=== PATIENT | female | born 2000 | race Caucasian/White ===

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

== ENCOUNTER 2022-04-15 17:34 | Outpatient (CLI) | payer MEDICAID, SELFPAY ==
--- NOTE | ~2022-04-15 | XR_ITS ---
EXAMINATION: XR thoracolumbar DATE: 04/15/2022 18:08 INDICATION: Scoliosis deformity of spine. Mid to low back pain. TECHNIQUE: 5 views of the thoracolumbar spine were obtained. COMPARISON: Lumbar spine radiographs 10/14/2013 FINDINGS: Bone alignment is normal. There is mild chronic anterior wedging of multiple thoracic verte bral bodies associated with Schmorl's nodes. There is mildly decreased disc height at multiple levels in lower thoracic spine. The facet joints are unremarkable. IMPRESSION: 1. Mild thoracic spondylosis. Reviewed, dictated and finalized at location A. ASSEMBLER
== END 2022-04-15 17:35 | disposition home or self-care (01) ==
LOC: CHSIMG 17:40
PROVIDERS: PCP Physician Assistant; Visit Provider Physician Assistant
DX: M41.9 Scoliosis, unspecified (principal); M43.04 Spondylolysis, thoracic region
CPT/HCPCS: 72080

== ENCOUNTER 2022-04-23 17:24 | Emergency (ER) | payer MEDICAID, SELFPAY ==
[2022-04-23 17:50] VITALS: BP 136/88; PULSE 98; RESP 20; TEMP 36.4; O2SAT 99
--- NOTE | 2022-04-23 18:11 | ED.GENADULT ---
HPI - General Adult General Chief complaint: Unspecified Stated complaint: white discharge coming our of rectum Time Seen by Provider: 04/23/22 17:29 Source: patient and family Mode of arrival: ambulatory Limitations: no limitations History of Present Illness HPI narrative: This is a 21-year-old female with no significant past medical history has been on a diet and has been drinking protein shakes and earlier today noticed some white and will discharge with no perirectal itching no no bleeding no fever chills no pain in the rectal area no nausea vomiting no abdominal pain. Onset (ago): hour(s) Severity: mild Related Data Home Medications Medication Instructions Recorded Confirmed topiramate 50 mg tablet 50 mg PO BID 04/23/22 04/23/22 Allergies Allergy/AdvReac Type Severity Reaction Status Date / Time sulfamethoxazole Allergy Hives Verified 04/23/22 18:07 [From Bactrim] trimethoprim [From Bactrim] Allergy Hives Verified 04/23/22 18:07 Review of Systems Review of Systems: All systems reviewed & are unremarkable except as noted in HPI and below PMFSH Past Medical History Medical History Patient denies medical problems Exam Const: General: cooperative, healthy appearing, comfortable, no acute distress and well developed HENMT: Head: normal to inspection Ears: hearing grossly normal bilaterally Face and sinus: normal facial exam Mouth: Yes Normal oral and palatal mucosa present Throat: posterior oropharynx normal Eyes: General: appearance normal, both eyes and all related structures Neck: Neck: normal visual inspection, full ROM, no lymphadenopathy and no meningeal signs Chest: Chest palpation & inspection: normal inspection of the chest Resp: Effort & Inspection: normal respiratory effort Auscultation: clear to auscultation bilaterally Cardio: Jugular venous distension: no JVD Palpation: normal PMI Rate: regular rate Rhythm: regular rhythm GI: Inspection: normal to inspection Other: rectal exam did not elicit any external hemorrhoids no redness no perirectal abscess currently no discharge no bleeding. : General: Yes bimanual renal exam normal bilaterally Urinary Catheter: Urinary Catheter: patent and draining Back/Spine/Pelvis: Back: no CVA tenderness Cervical Spine: normal cervical lordosis Skin: General skin exam: normal color and no rashes or lesions noted Neuro: General: oriented to person, oriented to place and oriented to time Psych: Appearance: grossly normal Mental Status: mental status grossly normal Course Course Emergency Course: Rectal exam did not elicit any white discharge no no evidence of pinworms. Vital Signs Vital signs: Vital Signs Temperature 36.4 C 04/23/22 17:50 Pulse Rate 98 04/23/22 17:50 Respiratory Rate 20 04/23/22 17:50 Blood Pressure 136/88 04/23/22 17:50 Pulse Oximetry 99 04/23/22 17:50 Oxygen Delivery Room Air 04/23/22 17:50 Temperature 36.4 C 04/23/22 17:50 Pulse Rate 98 04/23/22 17:50 Respiratory Rate 20 04/23/22 17:50 Blood Pressure 136/88 04/23/22 17:50 Pulse Oximetry 99 04/23/22 17:50 Oxygen Delivery Room Air 04/23/22 17:50 Medical Decision Making Vital Signs Vital Signs: Vital Signs Temperature 36.4 C 04/23/22 17:50 Pulse Rate 98 04/23/22 17:50 Respiratory Rate 04/23/22 17:50 Blood Pressure 136/88 04/23/22 17:50 Pulse Oximetry 99 04/23/22 17:50 Oxygen Delivery Room Air 04/23/22 17:50 Temperature 36.4 C 04/23/22 17:50 Pulse Rate 98 04/23/22 17:50 Respiratory Rate 04/23/22 17:50 Blood Pressure 136/88 04/23/22 17:50 Pulse Oximetry 99 04/23/22 17:50 Oxygen Delivery Room Air 04/23/22 17:50 Critical Care Time Critical Care Time Critical Care Time: No Discharge Plan Discharge Clinical Impression: Rectal discharge Patient Disposition: Home, Self-Care Conditi
[2022-04-23 18:22] VITALS: BP 125/82; PULSE 63; RESP 20; TEMP 36.4; O2SAT 99
--- NOTE | 2022-04-23 18:37 | PC.NURSE ---
On 04/23/22, the student, [farhan shultz ], provided care and completed [facility] documentation on this patient. I have reviewed the student's documentation and agree with the findings.
== END 2022-04-23 18:37 | disposition home or self-care (01) ==
LOC: CHSED 18:17
PROVIDERS: Emergency Provider Emergency Medicine; PCP Physician Assistant
DX: K62.89 Other specified diseases of anus and rectum (principal)
CPT/HCPCS: 99281

== ENCOUNTER 2024-01-18 18:12 | Outpatient (CLI) | payer OTHER, SELFPAY ==
--- NOTE | ~2024-01-18 | XR_ITS ---
XR shoulder RT min 2V Ordering provider: Brian Keenan, JADE History: . PAIN IN RIGHT SHOULDER . Comparison: None. FINDINGS: BONES: No acute fracture or dislocation. JOINT SPACES: The acromioclavicular joint is normal. The glenohumeral joint is normal. SOFT TISSUES: Normal. IMPRESSION: No acute osseous abnormality right shoulder. Reviewed, dictated and finalized at location A.
== END 2024-01-18 18:13 | disposition home or self-care (01) ==
LOC: CHSIMG 18:15
PROVIDERS: PCP Physician Assistant; Visit Provider Physician Assistant
DX: M25.511 Pain in right shoulder (principal)
CPT/HCPCS: 73030